=== PATIENT | male | born 1995 | race Hispanic/Latino ===

== ENCOUNTER 2024-10-23 11:11 | Emergency (ER) | payer OTHER ==
[~2024-10-23] VITALS: Ht 180.3 cm; Wt 83.5 kg
[2024-10-23 11:15] VITALS: PULSE 70; RESP 20; TEMP 98.2; O2SAT 100
[2024-10-23] MEDS: SODIUM CHLORIDE 0.9% 1000ML 1,000 ML IV ONE (11:34)
[2024-10-23] MEDS: ONDANSETRON HCL INJ 2MG/ML 2ML 2 MG/ML VIAL IV STA (11:34)
[2024-10-23] MEDS ORDERED: ONDANSETRON ODT4 MG PO (11:57)
== END 2024-10-23 12:19 | disposition home or self-care (01) ==
LOC: FSED 11:13
DX: R11.2 Nausea with vomiting, unspecified (principal); K52.9 Noninfective gastroenteritis and colitis, unspecified; R10.9 Unspecified abdominal pain
CPT/HCPCS: 80053; 85025; 99283; J2405; J7030

== ENCOUNTER 2024-10-27 06:19 | Emergency (ER) | payer OTHER ==
[~2024-10-27 06:19] MED LIST: ONDANSETRON ODT4 MG PO
[2024-10-27 06:50] VITALS: PULSE 62; RESP 16; TEMP 97.9
[2024-10-27] MEDS: SODIUM CHLORIDE 0.9% 1000ML 1,000 ML IV ONE (07:31)
[2024-10-27] MEDS: METOCLOPRAMIDE HCL 10 MG/2ML VIAL IV ONE (07:31)
[2024-10-27] MEDS: FAMOTIDINE 20 MG/2 ML VIAL IV STA (08:10)
[2024-10-27] MEDS ORDERED: PHENERGAN SUPP25 MG RC (08:57)
[2024-10-27 09:11] VITALS: BP 146/65; PULSE 72; RESP 20; O2SAT 99
== END 2024-10-27 09:10 | disposition home or self-care (01) ==
LOC: FSED 06:34
DX: R11.2 Nausea with vomiting, unspecified (principal); K52.9 Noninfective gastroenteritis and colitis, unspecified; R10.9 Unspecified abdominal pain; Z11.52 Encounter for screening for COVID-19
CPT/HCPCS: 0223U; 80053; 81003; 85025; 87400; 99283; J2765; J7030

== ENCOUNTER 2024-12-02 16:14 | Observation (INO) | payer OTHER ==
[~2024-12-02] VITALS: Ht 180.3 cm; Wt 85.4 kg
[~2024-12-02 16:14] MED LIST changes: +PHENERGAN SUPP25 MG RC
[2024-12-02 16:20] VITALS: PULSE 102; RESP 20; TEMP 99.3
[2024-12-02] MEDS: KETOROLAC TROMETHAMINE 30 MG/ML VIAL IV STA (17:14)
[2024-12-02] MEDS: ACETAMINOPHEN 325 MG TAB PO ONE (17:14)
[2024-12-02] MEDS: SODIUM CHLORIDE 0.9% 1000ML 1,000 ML IV ONE (17:15)
[2024-12-02] MEDS ORDERED: IOPAMIDOL 370 MG/ML 100 ML INFUS..BTL INJ ONE ×2 (17:34→19:16)
[2024-12-02] MEDS ORDERED: ONDANSETRON HCL INJ 2MG/ML 2ML 2 MG/ML VIAL IV PRN (19:00)
[2024-12-02] MEDS ORDERED: Morphine 2mg Syringe 2 MG/ML SYR IV PRN (19:00)
[2024-12-02] MEDS ORDERED: PIPERACILLIN/TAZOBACTAM 4.5 GM in SODIUM CHLORIDE 0.9% 100 ML IV SCH (19:30)
[2024-12-02 20:00] VITALS: BP 112/59; PULSE 71; RESP 18; TEMP 98.4; O2SAT 99
[2024-12-02] MEDS: DOXYCYCLINE HYCLATE TABLET 100 MG TAB PO SCH (23:17)
[2024-12-02] MEDS: SODIUM CHLORIDE 0.9% 1000ML 1,000 ML IV SCH (23:17)
[2024-12-02] MEDS ORDERED: OMEGA-31000 MG PO (23:48)
[2024-12-02] MEDS ORDERED: MULTI-VITAMIN1 EACH PO (23:48)
[2024-12-03] VITALS (7 sets, daily range): BP systolic 113–129; BP diastolic 51–63; PULSE 80–97; RESP 16–18; TEMP 97.9–102.5; O2SAT 98–100
[2024-12-03] MEDS ORDERED: ALBUTEROL/IPRATROPIUM 3 ML NEB NEB PRN (01:30)
[2024-12-03] MEDS ORDERED: DEXTROSE 50% SYRINGE 50 ML IV PRN (01:30)
[2024-12-03] MEDS ORDERED: TRAMADOL HCL 50 MG TAB PO PRN (01:30)
[2024-12-03] MEDS ORDERED: SIMETHICONE 80 MG CHEW PO PRN (01:30)
[2024-12-03] MEDS ORDERED: DIPHENHYDRAMINE HCL 25 MG CAP PO PRN (01:30)
[2024-12-03] MEDS ORDERED: MELATONIN 5 MG TABLET PO PRN (01:30)
[2024-12-03] MEDS ORDERED: LIDOCAINE 4% PATCH TP PRN (01:30)
[2024-12-03] MEDS ORDERED: POTASSIUM CHLORIDE 20 MEQ TAB CR PO PRN (01:30)
[2024-12-03] MEDS ORDERED: HYDRALAZINE HCL 20 MG/ML VIAL IV PRN (01:30)
[2024-12-03] MEDS ORDERED: DOCUSATE SODIUM 100 MG CAP PO PRN (01:30)
[2024-12-03] MEDS ORDERED: BENZONATATE 100 MG CAP PO PRN (01:30)
[2024-12-03] MEDS: ACETAMINOPHEN 325 MG TAB PO PRN (04:41)
[2024-12-03 05:28] LABS: BASOPHILS % 0.4 % (0.0-1.0); HEMATOCRIT 33.5 % (38.2-49.6); HEMOGLOBIN 11.9 g/dL (14.0-18.0); LYMPHOCYTES # (AUTO) 0.6 (1.0-3.2); LYMPHOCYTES % 27.9 % (18.0-39.1); MEAN CORPUSCULAR HEMOGLOBIN 29.5 pg (28-32); MEAN CORPUSCULAR HGB CONC 35.5 g/dL (31-35); MEAN CORPUSCULAR VOLUME 82.9 fL (81-99); MONOCYTES # (AUTO) 0.2 (0.2-0.8); MONOCYTES % 8.3 % (4.4-11.3); NEUTROPHILS # (AUTO) 1.5 (2.1-6.9); NEUTROPHILS % 63.4 % (38.7-80.0); PLATELET COUNT 85 x10e3/uL (140-360); RED BLOOD COUNT 4.04 x10e6/uL (4.3-5.7); RED CELL DISTRIBUTION WIDTH 12.7 % (11.7-14.4); WHITE BLOOD COUNT 2.29 x10e3/uL (4.8-10.8)
[2024-12-03 05:48] LABS: CALCIUM 7.8 mg/dL (8.4-10.2); CHOL/HDL RATIO 8.4 (3.9-4.7); CREATININE, SERUM 0.83 mg/dL (0.72-1.25)
[2024-12-03 06:10] LABS: FERRITIN 1478.5 ng/mL (21.81-274.66); THYROID STIMULATING HORMONE 2.155 uIU/mL (0.350-4.940)
[2024-12-03 07:24] LABS: HIV 1&2 AB SCREEN NON-REACTIVE (NONREACTIVE); HIV- 1 P24 AG SCREEN NON-REACTIVE (NONREACTIVE)
[2024-12-03 08:34] LABS: BAND NEUTROPHILS % (MANUAL) 31 %; LYMPHOCYTES % (MANUAL) 15 % (19-48); METAMYELOCYTES % (MANUAL) 2 % (0-0); MONOCYTES % (MANUAL) 9 % (3.4-9.0); NEUTROPHILS % (MANUAL) 43 % (40-74)
[2024-12-03 08:35] LABS: PLATELET MORPHOLOGY COMMENT NORMAL
[2024-12-03 08:36] LABS: PLATELET ESTIMATE MODERATELY DECREASED
[2024-12-03 08:37] LABS: RBC MORPHOLOGY COMMENT NORMAL
[2024-12-03] MEDS: PANTOPRAZOLE SOD 40 MG TABEC PO SCH (09:52)
[2024-12-04 07:27] LABS: HEPATITIS B CORE IGM (P) Negative
[2024-12-04 07:28] LABS: HEPATITIS A ANTIBODY IGM (P) Negative; HEPATITIS B SURFACE AG (P) Negative; HEPATITIS C ANTIBODY Non Reactive
== END 2024-12-03 19:24 | disposition short-term general hospital (02) ==
LOC: FSED 16:32 → ERHOLD 18:55 → MED/SURG 20:29 → MED/SURG2 12-03 11:42
PROVIDERS: ADMIT Internal Medicine; ATTEND Internal Medicine
DX: R50.9 Fever, unspecified (principal); D72.819 Decreased white blood cell count, unspecified; D69.6 Thrombocytopenia, unspecified; D61.818 Other pancytopenia; D50.9 Iron deficiency anemia, unspecified; E87.1 Hypo-osmolality and hyponatremia; R53.83 Other fatigue
CPT/HCPCS: 0223U; 36415; 71046; 71260; 74177; 80048; 80053; 80061; 81003; 82728; 83518; 83540; 84443; 84466; 85025 ×2; 86308; 87040; 87390; 87400; 94799; 99284; G0378 ×2; G0433; G0435; J1885; J2470; J2543 ×3; J7030 ×2; J7050; Q9967